=== PATIENT | male | born 1955 ===

== ENCOUNTER 2021-09-13 18:11 | Emergency (ER) | payer MEDICARE, MEDICAID ==
[2021-09-13 18:19] VITALS: BP 155/98
== END 2021-09-13 19:30 | disposition left against medical advice (07) ==
LOC: ED 18:11
DX: Z53.21 Procedure and treatment not carried out due to patient leaving prior to being seen by health care provider (principal)

== ENCOUNTER 2022-03-29 21:05 | Emergency (ER) | payer MEDICARE, MEDICAID ==
[2022-03-29] MEDS ORDERED: MECLIZINE 25 MG TAB PO ONE (22:11)
[2022-03-29] MEDS ORDERED: METOCLOPRAMIDE 10 MG TAB PO ONE (22:11)
--- NOTE | 2022-03-29 22:13 | Event Note ---
Date: 03/29/22 Verbal report received from emergency medical services. EMS documentation not available at time of chart dictation Medical screening examination 66-year-old gentleman with unknown past medical history who does not really follow with a primary care doctor, presenting to the department today with a complaint of 2 days dizziness which is nonspecific. EMS reports patient is ambulatory with assistance. Patient complains of bilateral nontraumatic knee pain. He is clinically sober with a GCS of 15. He has no lateralizing neurologic physical exam findings. There is no nystagmus. Denies travel, surgery, immobilization, DVT and pulmonary embolism risk factors. Endorses nonspecific cough. Place patient on compliance monitor, obtain appropr iate laboratory studies, x-ray of the chest, EKG, noncontrast CT scan of the brain. Start treatment with Reglan and Antivert. Detailed history and physical to be performed by oncoming provider
--- NOTE | 2022-03-29 22:32 | XRay Report ---
CHEST 1 VIEW 03/29/2022 9:25 PM INDICATION / CLINICAL INFORMATION: Reporting cough but does not. COMPARISON: None available. FINDINGS: SUPPORT DEVICES: None. HEART / MEDIASTINUM: No significant abnormality. LUNGS / PLEURA: No significant pulmonary or pleural abnormality. No pneumothorax. ADDITIONAL FINDINGS: No significant additional findings. IMPRESSION: 1. No acute findings. Signer Name: Daryn Harvey DO Signed: 03/29/2022 10:28 PM Workstation Name: [id number]
--- NOTE | 2022-03-29 22:57 | Emergency Department Report ---
HPI - General Chief Complaint: Dizziness Time Seen by Provider: 03/29/22 22:44 - HPI HPI: Room 4 The patient is a 66-year-old male present with a chief complaint of dizziness. Patient states for 1 week he has had intermittent dizziness that often comes on with turning his head. Patient states he feels though the room is moving. Patient does admit to headache with the dizziness. Patient denies nausea vomiting or diarrhea. Patient denies any preceding trauma. Patient mitts to an occasional cough and rhinorrhea for the past 2 to 3 days. Patient states he went to [facility] yesterday had blood work performed but no CT scan of his brain. Patient states he complained of chest pain to them at that time but does not have chest pain currently ED Past Medical Hx - Past Medical History Previous Medical History?: Yes Hx Hypertension: Yes Hx Diabetes: Yes Hx Arthritis: Yes Additional medical history: GOUT - Surgical History Past Surgical History?: No - Family History Family history: no significant - Social History Smoking Status: Current Some Day Smoker Substance Use Type: None (Denies illicit drug use) - Medications Home Medications: Home Medications Medication Instructions Recorded Confirmed Last Taken Type Meclizine [Antivert] 25 mg PO TID PRN #20 03/30/22 Unknown Rx ED Review of Systems ROS: Stated complaint: DIZZINESS Other details as noted in HPI Constitutional: denies: fever Eyes: denies: eye pain ENT: denies: throat pain Respiratory: denies: shortness of breath Cardiovascular: denies: chest pain Endocrine: no symptoms reported Gastrointestinal: denies: nausea, vomiting, diarrhea Genitourinary: denies: dysuria Musculoskeletal: denies: back pain Neurological: headache, vertigo Physical Exam - Physical Exam Vital Signs: Vital Signs 03/29/22 21:05 Temperature 97 F L Pulse Rate 80 Respiratory 18 Rate Blood Pressure 132/86 O2 Sat by Pulse 98 Oximetry Physical Exam: GENERAL: The patient is well-developed well-nourished male lying on stretcher n ot appearing to be in acute distress. [] HEENT: Normocephalic. Atraumatic. Extraocular motions are intact. Patient has moist mucous membranes. No nystagmus noted NECK: Supple. Trachea midline CHEST/LUNGS: Clear to auscultation. There is no respiratory distress noted. HEART/CARDIOVASCULAR: Regular. There is no tachycardia. There is no gallop rub or murmur. ABDOMEN: Abdomen is soft, nontender. Patient has normal bowel sounds. There is no abdominal distention. SKIN: There is no rash. There is no edema. There is no diaphoresis. NEURO: The patient is awake, alert, and oriented. The patient is cooperative. The patient has no focal neurologic deficits. The patient has normal speech. GCS 15. Cranial nerves II through XII grossly intact MUSCULOSKELETAL: There is no evidence of acute injury. ED Course Vital Signs 03/29/22 21:05 Temperature 97 F L Pulse Rate 80 Respiratory 18 Rate Blood Pressure 132/86 O2 Sat by Pulse 98 Oximetry - Reevaluation(s) Reevaluation #1: 03/30/22 02:28 Patient states he feels improved ED Medical Decision Making - Lab Data Result diagrams: 03/29/22 23:07 03/29/22 23:07 Laboratory Tests 03/29/22 03/29/22 03/29/22 23:07 23:07 23:07 WBC 8.1 RBC 5.16 H Hgb 13.7 Hct 40.6 MCV 79 L MCH 27 L MCHC 34 RDW 15.6 H Plt Count 260 Lymph % (Auto) 22.1 [place] % (Auto) 6.9 Eos % (Auto) 3.7 Baso % (Auto) 1.7 Lymph # (Auto) 1.8 [place] # (Auto) 0.6 Eos # (Auto) 0.3 Baso # (Auto) 0.1 Seg Neutrophils % 65.6 Seg Neutrophils # 5.3 PT 13.5 INR 0.91 APTT 39.7 H Thrombin Time 15.7 Sodium 137 Potassium 3.9 Chloride 101.0 Carbon Dioxide 27 Anion Gap 13 BUN 7 L Creatinine 1.0 Estimated GFR > 60 BUN/Creatinine Ratio 7 Glucose 98 Calcium 8.9 Magnesium Total Bilirubin 0.50 AST 11 ALT 7 Alkaline Phosphatase 136 H Total Creatine Kinase 58 CK-MB (CK-2) 1.5 CK-MB (CK-2) Rel Index 2.5 Troponin T < 0.010 Total Protein 7.2 Albumin 4.0 Albumin/Globulin Ratio 1.3 TSH Urine Color Urine Turbidity Urine pH Ur Specific [place] Urine Protein Urine Glucose (UA) Urine Ketones Urine Blood Urine Nitrite Urine Bilirubin Urine Urobilinogen Ur Leukocyte Esterase Urine WBC (Auto) Urine RBC (Auto) U Epithel Cells (Auto) Urine Mucus Plasma/Serum Alcohol 03/29/22 03/29/22 03/29/22 23:07 23:07 23:07 WBC RBC Hgb Hct MCV MCH MCHC RDW Plt Count Lymph % (Auto) [place] % (Auto) Eos % (Auto) Baso % (Auto) Lymph # (Auto) [place] # (Auto) Eos # (Auto) Baso # (Auto) Seg Neutrophils % Seg Neutrophils # PT INR APTT Thrombin Time Sodium Potassium Chloride Carbon Dioxide Anion Gap BUN Creatinine Estimated GFR BUN/Creatinine Ratio Glucose Calcium Magnesium 2.10 Total Bilirubin AST ALT Alkaline Phosphatase Total Creatine Kinase CK-MB (CK-2) CK-MB (CK-2) Rel Index Troponin T Total Protein Albumin Albumin/Globulin Ratio TSH 1.790 Urine Color Urine Turbidity Urine pH Ur Specific [place] Urine Protein Urine Glucose (UA) Urine Ketones Urine Blood Urine Nitrite Urine Bilirubin Urine Urobilinogen Ur Leukocyte Esterase Urine WBC (Auto) Urine RBC (Auto) U Epithel Cells (Auto) Urine Mucus Plasma/Serum Alcohol < 0.01 03/30/22 00:05 WBC RBC Hgb Hct MCV MCH MCHC RDW Plt Count Lymph % (Auto) [place] % (Auto) Eos % (Auto) Baso % (Auto) Lymph # (Auto) [place] # (Auto) Eos # (Auto) Baso # (Auto) Seg Neutrophils % Seg Neutrophils # PT INR APTT Thrombin Time Sodium Potassium Chloride Carbon Dioxide Anion Gap BUN Creatinine Estimated GFR BUN/Creatinine Ratio Glucose Calcium Magnesium Total Bilirubin AST ALT Alkaline Phosphatase Total Creatine Kinase CK-MB (CK-2) CK-MB (CK-2) Rel Index Troponin T Total Protein Albumin Albumin/Globulin Ratio TSH Urine Color Yellow Urine Turbidity Clear Urine pH 7.0 Ur Specific [place] 1.016 Urine Protein <15 mg/dl Urine Glucose (UA) Neg Urine Ketones Neg Urine Blood Neg Urine Nitrite Neg Urine Bilirubin Neg Urine Urobilinogen 2.0 Ur Leukocyte Esterase Neg Urine WBC (Auto) < 1.0 Urine RBC (Auto) 1.0 U Epithel Cells (Auto) 1.0 Urine Mucus Few Plasma/Serum Alcohol - Radiology Data Radiology results: report reviewed (CT head, chest x-ray), image reviewed (CT head, chest x-ray) interpreted by me: Chest x-ray-no definite focal infiltrates, no pneumothorax [facility] [address] [place] [address] Cat Scan Report Signed Patient: SHERRILL HAGEN MR#: [id number] 4 : 1955 Acct:[id number] Age/Sex: 66 / M ADM Date: 03/29/22 Loc: ED Attending Dr: Ordering Physician: MANJULA MYLES MD Date of Service: 03/29/22 Procedure(s): CT head/brain wo con Accession Number(s): [id number] cc: MANJULA MYLES MD CT HEAD WITHOUT CONTRAST INDICATION / CLINICAL INFORMATION: 2 days of dizziness. TECHNIQUE: CT head was performed without administration of intravenous contrast. All CT scans at this location are performed using CT dose reduction for ALARA by means of automated exposure control . COMPARISON: None available. FINDINGS: CEREBRAL HEMISPHERES: There is no evidence of large territorial infarction or significant abnormality of prince-white matter differentiation. Ventricles within normal limits. No midline shift. Basal cisterns patent. HEMORRHAGE: None. CEREBELLUM / BRAINSTEM: No significant abnormality. ORBITS: No significant abnormality. SOFT TISSUES: No significant abnormality. SKULL: No significant abnormality. PARANASAL SINUSES / MASTOID AIR CELLS: Normal as visualized. ADDITIONAL FINDINGS: None. IMPRESSION: 1. No acute intracranial abnormality. Signer Name: Guevara Sheppard II, MD Signed: 03/29/2022 11:26 PM Workstation Name: [id number] Transcribed By: JULIEN Dictated By: GUEVARA SHEPPARD II, MD Electronically Authenticated By: GUEVARA SHEPPARD II, MD Signed Date/Time: 03/29/222325 DD/ 25 TD/TT: [facility] [address] [place] [address] XRay Report Signed Patient: SHERRILL HAGEN MR#: [id number] 4 : 1955 Acct:[id number] Age/Sex: 66 / M ADM Date: 03/29/22 Loc: ED Attending Dr: Ordering Physician: MANJULA MYLES MD Date of Service: 03/29/22 Procedure(s): XR chest 1V ap Accession Number(s): [id number] cc: MANJULA MYLES MD Fluoro Time In Minutes: CHEST 1 VIEW 03/29/2022 9:25 PM INDICATION / CLINICAL INFORMATION: Reporting cough but does not. COMPARISON: None available. FINDINGS: SUPPORT DEVICES: None. HEART / MEDIASTINUM: No significant abnormality. LUNGS / PLEURA: No significant pulmonary or pleural abnormality. No pneumothorax. ADDITIONAL FINDINGS: No significant additional findings. IMPRESSION: 1. No acute findings. Signer Name: Daryn Bellamy DO Signed: 03/29/2022 10:28 PM Workstation Name: [id number] Transcribed By: EDILSON Dictated By: DARYN BELLAMY DO Electronically Authenticated By: DARYN BELLAMY DO Signed Date/Time: 03/29/222227 DD/ 27 TD/TT: - Differential Diagnosis Peripheral vertigo, central vertigo, symptomatic anemia, dehydration Critical care attestation.: If time is entered above; I have spent that time in minutes in the direct care of this critically ill patient, excluding procedure time. ED Disposition Clinical Impression: Vertigo Disposition: HOME / SELF CARE / HOMELESS Is pt being admited?: No Does the pt Need Aspirin: No Condition: Stable Instructions: Vertigo Additional Instructions: Return to the emergency department should you develop worsening symptoms, inability to tolerate food or liquids, high fever or any other concerns Prescriptions: Meclizine [Antivert] 25 mg PO TID PRN #20 PRN Reason: Vertigo Referrals: RAMONA SCRUGGS MD [Primary Care Provider] - 3-5 Days (Dr. Scruggs is a primary physician. Please follow-up with him to be established as a patient) CECI HERRERA MD [Staff Physician] - 3-5 Days (Dr. Herrera is a neurologist. Please follow-up with him for further evaluation) Time of Disposition: 02:30
[2022-03-29 23:25] LABS: Basophils # (Auto) 0.1 K/mm3 (0.0-0.1); Basophils % (Auto) 1.7 % (0.0-1.8); Eosinophils # (Auto) 0.3 K/mm3 (0.0-0.4); Eosinophils % (Auto) 3.7 % (0.0-4.3); Hematocrit 40.6 % (35.5-45.6); Hemoglobin 13.7 gm/dl (11.8-15.2); Lymphocytes # (Auto) 1.8 K/mm3 (1.2-5.4); Lymphocytes % (Auto) 22.1 % (13.4-35.0); Mean Corpuscular HGB Conc 34 % (32-34); Mean Corpuscular Volume 79 fl (84-94); Monocytes # (Auto) 0.6 K/mm3 (0.0-0.8); Monocytes % (Auto) 6.9 % (0.0-7.3); Platelet Count 260 K/mm3 (140-440); Red Blood Count 5.16 M/mm3 (3.65-5.03); Red Cell Distribution Width 15.6 % (13.2-15.2)
--- NOTE | 2022-03-29 23:31 | Cat Scan Report ---
CT HEAD WITHOUT CONTRAST INDICATION / CLINICAL INFORMATION: 2 days of dizziness. TECHNIQUE: CT head was performed without administration of intravenous contrast. All CT scans at this location are performed using CT dose reduction for ALARA by means of automated exposure control. COMPARISON: None available. FINDINGS: CEREBRAL HEMISPHERES: There is no evidence of large territorial infarction or significant abnormality of prince-white matter differentiation. Ventricles within normal limits. No midline shift. Basal ciste rns patent. HEMORRHAGE: None. CEREBELLUM / BRAINSTEM: No significant abnormality. ORBITS: No significant abnormality. SOFT TISSUES: No significant abnormality. SKULL: No significant abnormality. PARANASAL SINUSES / MASTOID AIR CELLS: Normal as visualized. ADDITIONAL FINDINGS: None. IMPRESSION: 1. No acute intracranial abnormality. Signer Name: Dickson Ware II, MD Signed: 03/29/2022 11:26 PM Workstation Name: [id number]
[2022-03-29 23:34] LABS: INR 0.91 (0.87-1.13); Thrombin Time 15.7 Sec. (15.1-19.6)
[2022-03-29 23:35] LABS: Partial Thromboplastin Time 39.7 Sec. (24.2-36.6)
[2022-03-29 23:38] LABS: Creatine Kinase MB 1.5 ng/mL (0.0-4.0)
[2022-03-29 23:43] LABS: Alanine Aminotransferase 7 units/L (7-56); BUN/Creatinine Ratio 7; Blood Urea Nitrogen 7 mg/dL (9-20); Calcium 8.9 mg/dL (8.4-10.2); Hemolysis Index 2
[2022-03-30 00:32] VITALS: BP 142/65
[2022-03-30 00:43] LABS: Bilirubin,Urine NEG (Negative); Blood,Urine NEG (Negative); Color,Urine Yellow (Yellow); Mucus,Urine FEW /HPF; Protein,Urine <15 mg/dL mg/dL (Negative)
[2022-03-30 00:44] LABS: WBC,Urine < 1.0 /HPF (0.0-6.0)
--- NOTE | 2022-03-31 15:14 | Electrocardiograph Report ---
[facility] Test Date: 2022-03-30 Test Time: 02:14:20 Pat Name: SHERRILL HAGEN Department: Room: Gender: M Subscription Crew Leader: RKOKU : 1955 Requested By: ESTRELLA MEIER Order Number: [id number] Reading MD: Bibiana Muller Measurements Intervals [place] Rate: 73 P: 83 WY: 258 QRS: 85 QRSD: 103 T: 40 QT: 422 QTc: 465 Interpretive Statements Sinus rhythm Prolonged [place] interval Low voltage, precordial leads Probable anteroseptal infarct, old No previous ECG available for comparison Electronically Signed On 03-31-2022 15:14:09 EDT by Bibiana Muller
== END 2022-03-30 03:02 | disposition home or self-care (01) ==
LOC: ED 21:05
DX: R42 Dizziness and giddiness (principal); I10 Essential (primary) hypertension; E11.9 Type 2 diabetes mellitus without complications; M19.90 Unspecified osteoarthritis, unspecified site
CPT/HCPCS: 36415; 70450; 71045; 80053; 80320; 81001; 82550; 82553; 83735; 84443; 84484; 85025; 85610; 85670; 85730; 93005; 99285; G0480